=== PATIENT | male | born 1960 | race Native Hawaiian/Other Pacific Islander ===

== ENCOUNTER 2017-04-27 13:19 | Outpatient (CLI) | payer OTHER ==
[~2017-04-27 13:19] MED LIST: METHADONE10 MG PO; ROXICODONE15 M1 PO; XANAX XR1 MG PO
[2017-04-27 13:55] LABS: PLATELET COUNT 269 K/uL (142-355)
[2017-04-27 14:20] LABS: POTASSIUM 4.5 mmol/L (3.6-5.2); SODIUM 136 mmol/L (136-145)
== END 2017-04-27 19:16 | disposition home or self-care (01) ==
LOC: LABW 13:19
PROVIDERS: Psychiatry & Neurology Forensic Psychiatry
DX: Z00.00 Encounter for general adult medical examination without abnormal findings (principal); E29.1 Testicular hypofunction; N40.0 Benign prostatic hyperplasia without lower urinary tract symptoms; E07.89 Other specified disorders of thyroid; E78.4 Other hyperlipidemia; E53.8 Deficiency of other specified B group vitamins; E55.9 Vitamin D deficiency, unspecified; E21.4 Other specified disorders of parathyroid gland
CPT/HCPCS: 36415; 80053; 80061; 81000; 82306; 82378; 82607; 82746; 83970; 84153; 84403; 84439; 84443; 84480; 85027

== ENCOUNTER 2017-06-21 08:16 | Day surgery (SDC) | payer OTHER ==
[2017-06-21 08:53] LABS: PLATELET COUNT 217 K/uL (142-355)
[2017-06-21 09:03] LABS: POTASSIUM 3.8 mmol/L (3.6-5.2); SODIUM 139 mmol/L (136-145)
== END 2017-06-21 12:40 | disposition home or self-care (01) ==
LOC: OR 08:16
PROVIDERS: Student in an Organized Health Care Education/Training Program
PROC: 07BH0ZZ Excision of Right Inguinal Lymphatic, Open Approach (ICD-10-PCS; principal; 2017-06-21)
DX: R59.0 Localized enlarged lymph nodes (principal)
CPT/HCPCS: 80053; 85027; 87070; 87076; 87205; J0132; J0690; J1170; J2001; J2250; J2405; J2704; J2765; J3010; J3490; S0028

== ENCOUNTER 2018-03-24 18:13 | Emergency (ER) | payer OTHER ==
[~2018-03-24] VITALS: Ht 177.8 cm; Wt 63.5 kg
[2018-03-24 20:52] VITALS: BP 181/91; TEMP 97.8
== END 2018-03-24 20:56 | disposition home or self-care (01) ==
LOC: ED 18:13
DX: G89.4 Chronic pain syndrome (principal)
CPT/HCPCS: 99282